=== PATIENT | female | born 2000 | race Caucasian/White ===

== ENCOUNTER 2021-12-13 11:49 | Emergency (ER) | payer BC, SELFPAY ==
--- OUTSIDE RECORDS SUMMARY | 2021-12-13 12:13 | XMS_ITS ---
:2000 Author Care Team Providers Name Role Phone _[place] Primary Care Provider Unavailable Allergies Code Code System Name Reaction Severity Status Onset NKDA ? Medications Name Status Start Date Stop Date ? ? acetaminophen 500 mg tablet Active ? Not available 2 TABS; 500 MG; once benzonatate 200 mg capsule Active ? Not a vailable Take 1 capsule 3 times a day by oral route for 10 days. fluoxetine Active ? Not available ketorolac 30 mg/mL (1 mL) injection solution Completed ? 07/11/2021 1 mL; 30 MG/ML; once ondansetron 4 mg disintegrating tablet Completed ? 07/11/2021 1-2 tablets as needed every 6 hrs for 10 days ondansetron HCl (PF) 4 mg/2 mL injection solution Active ? Not available 4mg IM x 1 now Seroquel Active ? Not available sodium chloride 0.9 % irrigation solution Completed ? 07/11/2021 1000 mL; 0.9 % Vyvanse Active ? Not available Problems No Known Problems Procedures Date Name Performed by ? 06/25/2021 CT, Head, W/o Contrast [facility] [address] [place], [place] [id number] (Work Place) Results Lab Results Date Name Specimen Result Interpretation Description Value Range Status Address ? 09/14/2021 SARS CoV 2 NOSE ? Sars-cov-2, not not Fin al [facility] RNA (NASAL OMID detected detected (Zina kingsley): (COVID-19), PASSAGE) [address], [place], continuous improvement intern-PCR, Jovani solano Respiratory Specimen ? ? NOSE ? Sars-cov-2, performed ? Final [facility] (NASAL OMID 2 Day (Trevor doyle): PASSAGE) Tat [address], [place] 07/19/2021 SARS CoV 2 SOURCE ? Sars-cov-2, not not Fi nal [facility] RNA NOT OMID detected detected (Zina kingsley): (COVID-19), INDICATED [address], QL, continuous improvement intern-PCR, Jovani solano Respiratory Specimen ? ? SOURCE ? Sars-cov-2, performed ? Final [facility] NOT OMID 2 Day (Trevor doyle): INDICATED Tat [address], [place] 07/19/2021 Please Note SOURCE ? Please Note comment ? Final [facility] NOT (Siddhartha n): INDICATED [address], [place] 07/18/2021 Rapid Flu ? Flu negative ? ? B lack (A+B) [place]: [address], [place] Past Encounters 09/14/2021 Nasal Congestion; Cough; Nausea and Vomi ting Elmo Pinto, [facility]: [address], [place] [address], Ph. 07/18/2021 Fever Ada Trina Hess, [facility]: [address], [place] [address], Ph. 07/11/2021 Postconcussion Syndrome Kassidy Hess [facility]: [address], [place] [address], Ph. 06/25/2021 Closed Injury of Head; Nausea and Vomiti ng Elmo Pinto, [facility]: [address], [place] [address], Ph. 02/25/2021 Fever; Cough Saige Bailey [facility] [place], [facility]: [address] [place] [address], Ph. Social History Tobacco Smoking Status Current Every Day Smoker Vaccine List Notes: vaccinated x3 day Plan of Care Reminders Provider Appointments None recorded. ? ? Lab None recorded. ? ? Referral None recorded. ? ? Procedures None recorded. ? ? Surgeries None recorded. ? ? Imaging None recorded. ? ? Vitals 09/14/2021 08:30AM Urgent Care Visit Height Weight BMI 5 ft 8 in 180 lbs 27.4 kg/m2 07/18/2021 05:00PM CoVID Testing (Symptoms) Height Weight BMI 5 ft 8 in 180 lbs 27.4 kg/m2 07/11/2021 03:45PM Urgent Care Visit Height Blood Pressure 5 ft 8 in 117/72 mm[Hg] 06/25/2021 02:00PM Urgent Care Visit Height Weight BMI Blood Pressure 5 ft 8 in 180 lbs 27.4 kg/m2 143/79 mm[Hg] 02/27/2021 Height Weight BMI 5 ft 8 in 170 lbs 25.8 kg/m2 08/03/2020 Blood Pressure 138/82 mm[Hg]
--- OUTSIDE RECORDS SUMMARY | 2021-12-13 12:13 | XMS_ITS | Encounter Summary ---
:2000 Author Reason for Visit COVID-19 symptoms Insomnia, chills, fever, body aches sinc e Friday. Assessment and Plan 1. Nasal congestion ? SARS CoV 2 RNA (COVID-19), QL, cane pusher-PC R, respiratory specimen 2. Cough ? benzonatate 200 mg capsule 3. Nausea and vomiting Suspect acute viral URI vs gastroenteri tis. To take precautions to prevent transmission (mask, avoid contact w/in 6 feet where possible, scrupulous hand hygiene) until symptom resolution. Should resolv e within 72 hrs, to follow-up if worseni ng in that period or no improvement at end of 72 hrs. Supportive care with OTC products as needed. Very low suspicion for life threatening etiology. Nontoxic appearance, no respiratory distress. I do not feel antibiotics are needed at this time. SARS-CoV-2 test obtained with sample col lected from anterior nares. A send out PCR test was collected and ordered and the patient will be contacted as soon as results are available Discussed the test ch aracteristics here - relatively high fal se negative rate, ubiquity of CoVID in the community. Clinical suspicion for CoVID is moderate I offered to prescribe ondansetron for h im, but he said that he already has some at home, prescribe by his PCP. Administered 4mg IM ondansetron in clinic as he was having some trouble tolerating oral. H e preferred to remain in the car rather than be seen in clinic. ? ondansetron HCl (PF) 4 mg/2 mL inject ion solution Discussion Note: None recorded.Patient educational handouts: No information available. Plan of Care Reminders Provider Appointments None recorded. ? ? Lab SARS CoV 2 RNA (COVID-19), QL, 09/14/2021 [facility] ([place]) cane pusher-PCR, Respiratory Specimen Referral None recorded. ? ? Procedures None recorded. ? ? Surgeries None recorded. ? ? Imaging None recorded. ? ? Medications Name Start Date ? ? acetaminophen 500 mg tablet ? 2 TABS; 500 MG; once benzonatate 200 mg capsule ? Take 1 capsule 3 times a day by oral route for 10 day s. fluoxetine ? ondansetron HCl (PF) 4 mg/2 mL injection solution ? 4mg IM x 1 now Seroquel ? Vyvanse ? Medications Administered Name Date ? ? ondansetron HCl (PF) 4 mg/2 mL injection solution 21-09-14T10:13:00 4mg IM x 1 now Vitals Height Weight BMI 5 ft 8 in 180 lbs 27.4 kg/m2 Results Lab Results Date Name Specimen Result Interpretation Description Value Range Status Address ? 09/14/2021 SARS CoV 2 NOSE ? Sars-cov-2, not not Fin al [facility] RNA (NASAL OMID detected detected (Zina kingsley): (COVID-19), PASSAGE) [address], , cane pusher-PCR, Jovani solano Respiratory Specimen ? ? NOSE ? Sars-cov-2, performed ? Final [facility] (NASAL OMID 2 Day (Trevor gton): PASSAGE) Tat [address], [place] Allergies Code Code System Name Reaction Severity Onset NKDA ? ? ? Problems No Known Problems Procedures None recorded. Vaccine List Notes: vaccinated x3 day Social History Tobacco Smoking Status Current Every Day Smoker What is your level of alcohol consumption? Moderate Do you or have you ever used any other forms Y Notes: vape of tobacco or nicotine? Do you use any illicit or recreational N drugs? Functional Status Unknown. Past Encounters 09/14/2021 Nasal Congestion; Cough; Nausea and Vomi hansa Pinto, [facility]: [address], [place] [address], Ph. History of Present Illness Note: <div>21 year old transmale patient {{without significant relevant past medical history with past medical history relevant for*}} depression, ADHD presents with concern for 3 days of cough, sore throat, nasal congestion, vomiting/nausea and nighttime chills</div><div>
</div><div>{{No known direct exposure to CoVID Known direct exposure to CoVID*}} in the contextof campus life, he is at the dormitories at [facility], where there have been several recent cases</div><div>
</div><div>Patient denies chest pain with exertion, shortness of breath at rest or with exertion, severe fatigue, hemoptysis, palpitations</div><div>
</div><div>
</div> Review of Systems ? Notes: <p>A 10-point review of syst ems was performed and all answers were negative except where noted in the HP I</p> Physical Exam ? Abdomen Adult UC Reported By: Patient Constitutional: General Appearance: healthy- appearing, well-nourished, well-developed. Level of Dis tress: NAD; mildy ill appearing, tired. Ambulation: ambulatin g normally Psychiatric: Insight: good judgement. Men sandra Status: active and alert, normal mood, normal affect. Orientation: to time, to place, to person Eyes: Lids and Conjunctivae: non-i njected, no discharge, no pallor. Sclerae: non-icteric Neck: Neck: supple, trachea midlin e, no masses, no meningeal signs, FROM Lungs: Respiratory effort: no dyspn ea. Auscultation: breath sounds normal, good air movement, C TA except as noted, no wheezing, no rales/crackles, no rhonch i Cardiovascular System: Heart Auscultation: RRR, nor mal S1, normal S2, no murmurs, no rubs, no gallops Abdomen: Inspection and Palpation: so ft, non-distended, no guarding, no rebound tenderness, no natasha s, no CVA tenderness, epigastric tenderness Skin: Inspection and palpation: wa rm and dry, no rash, good turgor, no jaundice Notes: <p>
</p>
[2021-12-13 12:29] VITALS: BP 125/72; PULSE 78; RESP 16; TEMP 36.6; O2SAT 99
[2021-12-13] MEDS: Metoclopramide 10 MG TAB (12:48)
--- NOTE | 2021-12-13 14:16 | NUR.NOTE ---
Nursing Note: Pt reports medication helped with her nausea, labs drawn & urine obtained. Provider notified.
[2021-12-13 14:19] LABS: Abs Immature Grans 0.03 10^3/uL (0.0-0.06); Absolute Basophil Count 0.03 10^3/uL (0.0-0.2); Absolute Eosinophil Count 0.03 10^3/uL (0.0-0.7); Absolute Lymphocyte Count 1.89 10^3/uL (1.2-3.4); Absolute Monocyte Count 0.53 10^3/uL (0.1-0.8); Basophils % 0.3; Eosinophils % 0.3; HCT 43.2 % (36.0-46.0); HGB 14.7 g/dL (11.2-15.7); Immature Grans % 0.3; Lymphocytes % 16.4; MCH 28.6 pg (27.0-33.0); MCV 84 fL (80-95); MPV 10.5 fL (8.0-11.0); Monocytes % 4.6; Neutrophils % 78.1; Platelet Count 305 10^3/uL (130-400); RBC 5.14 10^6/uL (3.93-5.22); RDW 13.5 % (11.7-14.6); RDW-SD 41.7 fL
[2021-12-13 14:19] LABS: Bilirubin Negative (Negative); Blood Negative (Negative); Clarity Clear (Clear); Glucose Negative (Negative); Ketones Negative (Negative); Leukocyte Esterase Trace (Negative); Nitrite Negative (Negative); Specific Gravity >= 1.030 (1.005-1.025); Urobilinogen 0.2 EU/dL (Up TO 0.2); pH 6.5 (5-8)
[2021-12-13 14:20] LABS: Absolute Neutrophil Count 8.98 10^3/uL (1.2-6.7)
[2021-12-13 14:25] LABS: Bacteria Few HPF (Negative); C & S Indicated? Yes; Casts Negative LPF (Negative); Crystals Negative HPF (Negative); Epithelial Cells Few HPF (Negative); Mucus Trace (Negative); RBC Negative HPF (0-2)
[2021-12-13 14:31] LABS: Lipase 38 U/L (73-393)
[2021-12-13 14:36] LABS: ALT 32 U/L (14-59); AST 22 U/L (15-37); Albumin 4.6 g/dL (3.4-5.0); Alkaline Phosphatase 99 U/L (46-116); Anion Gap 11.3 mmol/L (3-11); BUN 18 mg/dL (7-18); Bilirubin, Total 0.6 mg/dL (0.2-1.0); CO2 25.7 mmol/L (21.0-32.0); Calcium 9.1 mg/dL (8.5-10.1); Chloride 103 mmol/L (98-107); Glucose 89 mg/dL (74-106); Potassium 3.8 mmol/L (3.5-5.1); Sodium 140 mmol/L (136-145); Total Protein 8.9 g/dL (6.4-8.2)
--- NOTE | 2021-12-13 14:41 | ED.GENADUL_ITS ---
Discharge Plan Disposition Patient Disposition: HOME Condition: Stable Discharge Details Clinical Impression: Nausea and vomiting, Hematemesis Primary Care Provider: Unknown,Unknown ED Provider: Leslie Hinkle Home Meds and New Rx's Prescriptions: New sucralfate [Carafate] 1 gram tablet 1 gm PO QACHS Qty: 14 0RF famotidine [Pepcid] 20 mg tablet 20 mg PO DAILY Qty: 14 0RF Continued quetiapine [Seroquel] 50 mg Tablet 30 mg PO DAILY fluoxetine 60 mg Tablet 80 mg PO DAILY Discharge Instructions Instructions: Acute Nausea and Vomiting (ED), Hematemesis (ED) Additional Instructions: Your lab work and imaging today is reassuring and shows no evidence of acute concerning or significant findings. You are being sent home with Phenergan to take as needed and directed for nausea and vomiting. Prescriptions for Pepcid and Carafate have been sent electronically to your pharmacy to take as directed. Follow-up with your primary care doctor in 1 week and for referral to general surgery for further evaluation if indicated. Return to the emergency department with any worsening or new concerning symptoms. Referrals: Kimberley England DO [OSTEOPATHIC DOCTOR] - Discharge Data Discharge Date/Time-TO BE ENTERED AT DEPARTURE: 12/13/21 18:53 Discharge Physician: Leslie Hinkle Medical Decision Making 21-year-old female with history of depression and frequent alcohol use presents with vomiting multiple times today including 5 episodes of vomiting dark red blood. Vitals within normal limits. Patient arrived to the ED during high volume and acuity and referred for screening labs which have been unremarkable. She has a normal hemoglobin. Her white blood cell count is 11.5 which may be an acute stress response. Urinalysis notes 3-5 WBCs with trace leukocyte esterase but she has no urinary symptoms so do not suspect acute urinary infection at this time. Urine culture sent. Her abdomen is soft and nontender. Her lungs are clear bilaterally. History and presentation does not appear consistent with Boorhaaves or esophageal varices. Consider PUD or alcoholic gastritis, however do not feel indication fo r CT imaging as her pain is currently resolved. Will refer for chest x-ray to rule out free air and give IV fluids, Pepcid, Phenergan and plan for 4-hour hemoglobin. Labs and imaging reviewed and unremarkable. 4-hour hemoglobin slightly down trended from 14.7 to 13.3. Patient feels better and would like to go home. She remains hemodynamically stable. Case discussed with Dr. England who recommends Carafate in addition to a PPI or H2 leonard. Patient given surgery follow-up information if needed. Advised to follow up with the primary care doctor for re-evaluation. Usual and customary return precautions given prior to discharge. Medical Records Medical records reviewed: Yes I reviewed the patient's medical records. Imaging Data Radiologic Study: Radiologist's impression: XR CHEST 2V PA ? LATERAL CLINICAL HISTORY:? chest? pain, vomiting blood, r/o acute disease TECHNIQUE:? 2D digital imaging was performed of the chest.? Two images were obtained.? PA and lateral views were obtained. COMPARISON:? No exams were available for comparison FINDINGS: MEDIASTINUM: Normal.? HEART: Normal. PULMONARY VASCULATURE: Normal. LUNGS: Clear. ? PLEURAL SPACE: No pleural effusion or pneumothorax. BONE:Within normal limits for the patient's age.? OTHER FINDINGS:Normal.? IMPRESSION: No acute pulmonary findings. Lab Data Lab results reviewed: Yes I reviewed the patient's lab results. Labs: 12/13/21 14:05 Urine - Reflex from Ua Urine Culture - Final Gram Positive Opal,Mixed Laboratory Tests Range/Units 12/13/21 12/13/21 12/13/21 14:05 14:15 14:15 WBC (4.4-10.8) 10^3/uL 11.50 H RBC (3.93-5.22) 10^6/uL 5.14 Hgb (11.2-15.7) g/dL 14.7 Hct (36.0-46.0) % 43.2 MCV (80-95) fL 84 MCH (27.0-33.0) pg 28.6 MCHC (32.0-36.0) % 34.0 RDW (11.7-14.6) % 13.5 Plt Count (130-400) 10^3/uL 305 MPV (8.0-11.0) fL 10.5 Immature Gran % 0.3 Neutrophils % 78.1 Lymphocytes % 16.4 Monocytes % 4.6 Eosinophils % 0.3 Basophils % 0.3 Nucleated RBC % (0.0-0.3) % 0.0 Absolute Neutrophils (1.2-6.7) 10^3/uL 8.98 H Absolute Lymphocytes (1.2-3.4) 10^3/uL 1.89 Absolute Monocytes (0.1-0.8) 10^3/uL 0.53 Absolute Eosinophils (0.0-0.7) 10^3/uL 0.03 Absolute Basophils (0.0-0.2) 10^3/uL 0.03 Sodium (136-145) mmol/L 140 Potassium (3.5-5.1) mmol/L 3.8 Chloride (98-107) mmol/L 103 Carbon Dioxide (21.0-32.0) mmol/L 25.7 Anion Gap (3-11) mmol/L 11.3 H BUN (7-18) mg/dL 18 Creatinine (0.55-1.02) mg/dL 1.0 Estimated GFR/1.73 m2 (mL/min/1.73m2) >= 60.00 Glucose (74-106) mg/dL 89 Calcium (8.5-10.1) mg/dL 9.1 Total Bilirubin (0.2-1.0) mg/dL 0.6 AST (15-37) U/L 22 ALT (14-59) U/L 32 Alkaline Phosphatase (46-116) U/L 99 Total Protein (6.4-8.2) g/dL 8.9 H Albumin (3.4-5.0) g/dL 4.6 Lipase (73-393) U/L Urine Color (Yellow) Yellow Urine Clarity (Clear) Clear Urine pH (5-8) 6.5 Ur Specific [place] (1.005-1.025) >= 1.030 H Urine Protein (Negative) mg/dL Negative Urine Ketones (Negative) mg/dL Negative Urine Blood (Negative) Negative Urine Nitrite (Negative) Negative Urine Bilirubin (Negative) Negative Urine Urobilinogen (Up TO 0.2) EU/dL 0.2 Ur Leukocyte Esterase (Negative) Trace H Urine RBC (0-2) HPF Negative Urine WBC (0-5) HPF 3-5 Ur Epithelial Cells (Negative) HPF Few Urine Crystals (Negative) HPF Negative Urine Bacteria (Negative) HPF Few Urine Casts (Negative) LPF Negative Urine Mucus (Negative) Trace Ur Culture Indicated? Yes Urine Glucose (Negative) mg/dL Negative Range/Units 12/13/21 12/13/21 14:15 18:10 WBC (4.4-10.8) 10^3/uL RBC (3.93-5.22) 10^6/uL Hgb (11.2-15.7) g/dL 13.3 Hct (36.0-46.0) % 38.9 MCV (80-95) fL MCH (27.0-33.0) pg MCHC (32.0-36.0) % RDW (11.7-14.6) % Plt Count (130-400) 10^3/uL MPV (8.0-11.0) fL Immature Gran % Neutrophils % Lymphocytes % Monocytes % Eosinophils % Basophils % Nucleated RBC % (0.0-0.3) % Absolute Neutrophils (1.2-6.7) 10^3/uL Absolute Lymphocytes (1.2-3.4) 10^3/uL Absolute Monocytes (0.1-0.8) 10^3/uL Absolute Eosinophils (0.0-0.7) 10^3/uL Absolute Basophils (0.0-0.2) 10^3/uL Sodium (136-145) mmol/L Potassium (3.5-5.1) mmol/L Chloride (98-107) mmol/L Carbon Dioxide (21.0-32.0) mmol/L Anion Gap (3-11) mmol/L BUN (7-18) mg/dL Creatinine (0.55-1.02) mg/dL Estimated GFR/1.73 m2 (mL/min/1.73m2) Glucose (74-106) mg/dL Calcium (8.5-10.1) mg/dL Total Bilirubin (0.2-1.0) mg/dL AST (15-37) U/L ALT (14-59) U/L Alkaline Phosphatase (46-116) U/L Total Protein (6.4-8.2) g/dL Albumin (3.4-5.0) g/dL Lipase (73-393) U/L 38 Urine Color (Yellow) Urine Clarity (Clear) Urine pH (5-8) Ur Specific [place] (1.005-1.025) Urine Protein (Negative) mg/dL Urine Ketones (Negative) mg/dL Urine Blood (Negative) Urine Nitrite (Negative) Urine Bilirubin (Negative) Urine Urobilinogen (Up TO 0.2) EU/dL Ur Leukocyte Esterase (Negative) Urine RBC (0-2) HPF Urine WBC (0-5) HPF Ur Epithelial Cells (Negative) HPF Urine Crystals (Negative) HPF Urine Bacteria (Negative) HPF Urine Casts (Negative) LPF Urine Mucus (Negative) Ur Culture Indicated? Urine Glucose (Negative) mg/dL ECG Data Attestation: I personally reviewed and interpreted this ECG (s) as follows: Interpretation: rate of 64, sinus, normal axis, no stemi. HPI General Mode of arrival: ambulatory . Date/Time Provider Initiated Documentation: 12/13/21 13:24 . Limitations to Documentation: no limitations . Information obtained by: patient . HPI Narrative: Patient is a 21-year-old female with a history of depression and frequent alcohol use presents with multiple episodes of vomiting today, including 5 episodes of vomiting blood. Patient states she drank 5 alcoholic drinks last night and then after awakening this morning began vomiting. She states the vomiting was initially bile and food and then had 5 episodes of vomiting dark maroon blood. She states she had chest pain and upper abdominal pain that occurred with vomiting but nothing that has persisted in this area since then. She denies any frequent NSAID use, fever, rectal bleeding or urinary symptoms. She currently denies any chest pain or shortness of breath. Related Data Home Medications Medication Instructions Recorded Confirmed famotidine 20 mg tablet (Pepcid) 20 mg PO DAILY #14 tabs 12/13/21 fluoxetine 60 mg tablet 80 mg PO DAILY 12/13/21 12/13/21 quetiapine 50 mg tablet (Seroquel) 30 mg PO DAILY 12/13/21 12/13/21 sucralfate 1 gram tablet (Carafate) 1 gm PO QACHS #14 tabs 12/13/21 Previous Rx's Medication Instructions Recorded famotidine 20 mg tablet (Pepcid) 20 mg PO DAILY #14 tabs 12/13/21 sucralfate 1 gram tablet (Carafate) 1 gm PO QACHS #14 tabs 12/13/21 Allergies Allergy/AdvReac Type Severity Reaction Status Date / Time No Known Allergies Allergy Unverified 12/13/21 12:33 General Stated Complaint: Nausea/Vomit/Diar CHANTEL: 4 Review of Systems All systems reviewed & are unremarkable except as noted in HPI and below Constitutional Constitutional: Denies chills, Denies excessive sweating, Denies fatigue, Denies fever(s), Denies weakness and Denies weight loss Eyes Eyes: Reports system reviewed and no additional complaints, except as documented and Denies blurry vision ENT Ears, Nose, Mouth, and Throat: Denies vertigo, Denies dizziness, Denies otalgia, Denies nasal congestion, Denies sore throat and Denies throat swelling Cardiovascular Cardiovascular: Denies chest pain, Denies syncope, Denies rapid heart rate and Denies dyspnea Respiratory Respiratory: Denies chest congestion, Denies cough, Denies pain on inspiration and Denies dyspnea Gastrointestinal Gastrointestinal: Reports abdominal pain, Denies diarrhea, Reports nausea, Reports vomiting and Reports hematemesis Genitourinary Genitourinary: Denies hematuria, Denies dysuria and Denies flank pain Musculoskeletal Musculoskeletal: Denies back pain and Denies joint swelling Integumentary/Breasts Skin/Breast: Denies lesions and Denies rash Neurologic Neurologic: Denies behavioral changes, Denies confusion, Denies vertigo, Denies dizziness, Denies syncope, Denies localized weakness and Denies weakness Psychiatric Psychiatric: Denies behavioral changes, Denies confusion and Denies depression Endocrine Endocrine: Denies excessive sweating and Denies fatigue Hematologic/Lymphatic Hematologic/Lymphatic: Denies easy bruising and Denies lymphadenopathy Allergic/Immunologic Allergic/Immunologic: Denies throat swelling PFSH All Active Problems (Updated 12/13/21 @ 18:39 by Leslie Hinkle DO) Nausea and vomiting (Acute) Hematemesis (Acute) Medical History (Updated 12/13/21 @ 18:39 by Leslie Hinkle DO) Depression Surgical History (Updated 12/13/21 @ 15:07 by Leslie Hinkle DO) History of knee surgery Social History Smoking/Tobacco Use Status: Current every day Tobacco Type: e-cigarettes Smoking risk assessment performed?: Yes Alcohol Intake: current Alcohol Intake frequency: a few times a week Drug use: Daily Substance use type: marijuana Do you feel safe at home: Yes Do you feel safe in your relationship?: Yes Exam Const General: cooperative and healthy appearing Orientation: alert, awake and oriented x3 HENMT Head: normal to inspection Ears: hearing grossly normal bilaterally, external ears normal and TM's normal bilaterally General nose exam: external nose normal Face and sinus: normal facial exam Mouth: oral mucosae normal Teeth and gingiva: dentition normal Throat: posterior oropharynx normal Eyes General: appearance normal, both eyes and all related structures Eyelids: eyelids normal Pupils: PERRL EOM: EOM intact bilaterally Neck Neck: normal visual inspection Lymphatic: no lymphadenopathy noted Chest Chest: normal inspection of the chest Resp Effort & Inspection: normal respiratory effort and able to speak in complete sentences Auscultation: clear to auscultation bilaterally Cardio Rate: regular rate Rhythm: regular rhythm GI Inspection: normal to inspection Palpation: soft, not firm, no guarding, no hepatosplenomegaly, no masses and nontender Auscultation: normal bowel sounds Back/Spine/Pelvis Back: no CVA tenderness Skin General skin exam: no rashes or lesions noted Neuro General: patient alert and patient awake Cognition: normal cognition Speech: speech normal Gait: normal gait Motor: muscle tone normal throughout Sensory Exam: no sensory deficits noted Extrem General: normal to inspection, full ROM and capillary refill normal Psych Appearance: grossly normal Mental Status: mental status grossly normal Speech and Movement: speech and movement normal Affect: normal affect Thought Process: normal Course Vital Signs Vital signs: Vital Signs Temperature 97.9 F 12/13/21 12:29 Pulse 78 12/13/21 12:29 Respiratory Rate 16 12/13/21 12:29 Blood Pressure 125/72 12/13/21 12:29 Pulse Oximetry 99 12/13/21 12:29 Temperature 97.9 F 12/13/21 12:29 Temperature Source Temporal Artery Scan 12/13/21 12:29 Pulse 78 12/13/21 12:29 Respiratory Rate 16 12/13/21 12:29 Blood Pressure 125/72 12/13/21 12:29 Blood Pressure Position Sitting 12/13/21 12:29 Pulse Oximetry 99 12/13/21 12:29 Oxygen Delivery Method Room Air 12/13/21 12:29 Oxygen Flow Rate 0 12/13/21 12:29 Pain Level 0 12/13/21 12:29 Lab/Test Results Lab/Test Results: 12/13/21 14:05 Urine - Reflex from Ua Urine Culture - Pending Laboratory Tests Range/Units 12/13/21 12/13/21 12/13/21 14:05 14:15 14:15 WBC (4.4-10.8) 10^3/uL 11.50 H RBC (3.93-5.22) 10^6/uL 5.14 Hgb (11.2-15.7) g/dL 14.7 Hct (36.0-46.0) % 43.2 MCV (80-95) fL 84 MCH (27.0-33.0) pg 28.6 MCHC (32.0-36.0) % 34.0 RDW (11.7-14.6) % 13.5 Plt Count (130-400) 10^3/uL 305 MPV (8.0-11.0) fL 10.5 Immature Gran % 0.3 Neutrophils % 78.1 Lymphocytes % 16.4 Monocytes % 4.6 Eosinophils % 0.3 Basophils % 0.3 Nucleated RBC % (0.0-0.3) % 0.0 Absolute Neutrophils (1.2-6.7) 10^3/uL 8.98 H Absolute Lymphocytes (1.2-3.4) 10^3/uL 1.89 Absolute Monocytes (0.1-0.8) 10^3/uL 0.53 Absolute Eosinophils (0.0-0.7) 10^3/uL 0.03 Absolute Basophils (0.0-0.2) 10^3/uL 0.03 Sodium (136-145) mmol/L 140 Potassium (3.5-5.1) mmol/L 3.8 Chloride (98-107) mmol/L 103 Carbon Dioxide (21.0-32.0) mmol/L 25.7 Anion Gap (3-11) mmol/L 11.3 H BUN (7-18) mg/dL 18 Creatinine (0.55-1.02) mg/dL 1.0 Estimated GFR/1.73 m2 (mL/min/1.73m2) >= 60.00 Glucose (74-106) mg/dL 89 Calcium (8.5-10.1) mg/dL 9.1 Total Bilirubin (0.2-1.0) mg/dL 0.6 AST (15-37) U/L 22 ALT (14-59) U/L 32 Alkaline Phosphatase (46-116) U/L 99 Total Protein (6.4-8.2) g/dL 8.9 H Albumin (3.4-5.0) g/dL 4.6 Lipase (73-393) U/L Urine Color (Yellow) Yellow Urine Clarity (Clear) Clear Urine pH (5-8) 6.5 Ur Specific [place] (1.005-1.025) >= 1.030 H Urine Protein (Negative) mg/dL Negative Urine Ketones (Negative) mg/dL Negative Urine Blood (Negative) Negative Urine Nitrite (Negative) Negative Urine Bilirubin (Negative) Negative Urine Urobilinogen (Up TO 0.2) EU/dL 0.2 Ur Leukocyte Esterase (Negative) Trace H Urine RBC (0-2) HPF Negative Urine WBC (0-5) HPF 3-5 Ur Epithelial Cells (Negative) HPF Few Urine Crystals (Negative) HPF Negative Urine Bacteria (Negative) HPF Few Urine Casts (Negative) LPF Negative Urine Mucus (Negative) Trace Ur Culture Indicated? Yes Urine Glucose (Negative) mg/dL Negative Range/Units 12/13/21 14:15 WBC (4.4-10.8) 10^3/uL RBC (3.93-5.22) 10^6/uL Hgb (11.2-15.7) g/dL Hct (36.0-46.0) % MCV (80-95) fL MCH (27.0-33.0) pg MCHC (32.0-36.0) % RDW (11.7-14.6) % Plt Count (130-400) 10^3/uL MPV (8.0-11.0) fL Immature Gran % Neutrophils % Lymphocytes % Monocytes % Eosinophils % Basophils % Nucleated RBC % (0.0-0.3) % Absolute Neutrophils (1.2-6.7) 10^3/uL Absolute Lymphocytes (1.2-3.4) 10^3/uL Absolute Monocytes (0.1-0.8) 10^3/uL Absolute Eosinophils (0.0-0.7) 10^3/uL Absolute Basophils (0.0-0.2) 10^3/uL Sodium (136-145) mmol/L Potassium (3.5-5.1) mmol/L Chloride (98-107) mmol/L Carbon Dioxide (21.0-32.0) mmol/L Anion Gap (3-11) mmol/L BUN (7-18) mg/dL Creatinine (0.55-1.02) mg/dL Estimated GFR/1.73 m2 (mL/min/1.73m2) Glucose (74-106) mg/dL Calcium (8.5-10.1) mg/dL Total Bilirubin (0.2-1.0) mg/dL AST (15-37) U/L ALT (14-59) U/L Alkaline Phosphatase (46-116) U/L Total Protein (6.4-8.2) g/dL Albumin (3.4-5.0) g/dL Lipase (73-393) U/L 38 Urine Color (Yellow) Urine Clarity (Clear) Urine pH (5-8) Ur Specific [place] (1.005-1.025) Urine Protein (Negative) mg/dL Urine Ketones (Negative) mg/dL Urine Blood (Negative) Urine Nitrite (Negative) Urine Bilirubin (Negative) Urine Urobilinogen (Up TO 0.2) EU/dL Ur Leukocyte Esterase (Negative) Urine RBC (0-2) HPF Urine WBC (0-5) HPF Ur Epithelial Cells (Negative) HPF Urine Crystals (Negative) HPF Urine Bacteria (Negative) HPF Urine Casts (Negative) LPF Urine Mucus (Negative) Ur Culture Indicated? Urine Glucose (Negative) mg/dL POC- Test(urine) Negative
--- NOTE | 2021-12-13 15:00 | DI.RAD_ITS ---
Exam(s) XR CHEST 2V PA LATERAL EXAM: XR CHEST 2V PA LATERAL CLINICAL HISTORY: chest pain, vomiting blood, r/o acute disease TECHNIQUE: 2D digital imaging was performed of the chest. Two images were obtained. PA and lateral views were obtained. COMPARISON: No exams were available for comparison FINDINGS: MEDIASTINUM: Normal. HEART: Normal. PULMONARY VASCULATURE: Normal. LUNGS: Clear. PLEURAL SPACE: No pleural effusion or pneumothorax. BONE:Within normal limits for the patient's age. OTHER FINDINGS:Normal. IMPRESSION: No acute pulmonary findings. DATA REPOSITORY: RADIATION DOSE DELIVERED:
--- NOTE | 2021-12-13 15:30 | RT.EKG_ITS ---
APPROVED REPORT Exam: Resting ECG Reason for Exam: chest pain Patient Location: E HR:64 bpm ECG Measurements Heart Rate 64 AXIS WA 157 P 48 QRSd 110 QRS 33 QT 442 T 37 QTc 457 Conclusion Sinus rhythm...normal P axis, V-rate 60- 99. Sinus. Normal axis. No STEMI. I have reviewed and interpreted ECG and agree with software generated interpretation.
[2021-12-13] MEDS: Normal Saline 1,000 ML 1000 ML IV (15:35)
[2021-12-13] MEDS: Famotidine 20 MG/2 ML VIAL IVP (15:45)
--- NOTE | 2021-12-13 16:16 | NUR.NOTE ---
pt provided with lunch Nursing Note:
[2021-12-13 16:20] VITALS: BP 94/67; PULSE 61; RESP 19; TEMP 36.7; O2SAT 97
[2021-12-13 18:15] LABS: HCT 38.9 % (36.0-46.0); HGB 13.3 g/dL (11.2-15.7)
[2021-12-13 18:31] VITALS: BP 109/76; PULSE 73; RESP 17; TEMP 36.5; O2SAT 99
[2021-12-13] MEDS: Sucralfate 1 GM TAB PO ×2 (18:52)
== END 2021-12-13 18:53 | disposition home or self-care (01) ==
PROVIDERS: Emergency Provider Physician Assistant
DX: K92.0 Hematemesis (principal); R07.9 Chest pain, unspecified; F17.290 Nicotine dependence, other tobacco product, uncomplicated
CPT/HCPCS: 36415; 80053; 81025; 83690; 93005; 96361; 96365; 96375; 99284; 71046; 81003; 81015; 85014; 85018; 85025; 87086; 93010; 99285